=== PATIENT | female | born 1985 | race Caucasian/White ===

== ENCOUNTER 2020-06-19 12:11 | Inpatient (IN) ==
[2020-06-19] MEDS ORDERED: Isovue-370 500 ML BOTTLE IVP ONE (12:58)
[2020-06-19 13:21] LABS: Basophils % 0.3 %; Eosinophils # 0.1 K/mcL (0.0-0.6); Eosinophils % 0.6 %; Hematocrit 38.9 % (35.3-44.9); Hemoglobin 13.1 g/dL (11.5-15.4); Immature Granulocytes % 0.2 % (0-4); Lymphocytes # 1.9 K/mcL (0.6-4.6); Lymphocytes % 18.6 %; Mean Corpuscular HGB Conc 33.7 g/dL (31.6-35.5); Mean Corpuscular Hemoglobin 30.6 pg (28.0-33.3); Mean Corpuscular Volume 90.9 fL (83.0-100.0); Mean Platelet Volume 10.2 fL (9.4-12.4); Monocytes # 0.5 K/mcL (0.0-1.3); Monocytes % 5.2 %; Neutrophils # 7.7 K/mcL (1.6-8.9); Platelet Count 189 K/mcL (140-400); Red Blood Count 4.28 M/mcL (3.82-4.97); Red Cell Distribution Width 12.2 % (11.5-14.5); Segmented Neutrophils % 75.1 %; White Blood Count 10.2 K/mcL (4.3-11.1)
[2020-06-19 13:44] LABS: BUN/Creatinine Ratio 10 (6-26); Blood Urea Nitrogen 8 mg/dL (6-20); C-Reactive Protein 12 mg/L (Less than 10); Calcium 9.1 mg/dL (8.6-10.3); Carbon Dioxide 22 mEq/L (23-29); Chloride 107 mEq/L (98-107); Glucose 96 mg/dL (70-105); Osmolality,Calculated 282 (280-300); Potassium 3.7 mEq/L (3.5-5.1); Sodium 137 mEq/L (136-145); eGFR For African Americans > 60 (> 60); eGFR For Non-African Americans > 60 (> 60)
[2020-06-19] MEDS ORDERED: Piperacillin/Tazobactam 3.375 GM in 0.9 % Sodium Chloride Mini Bag 100 ML IVPB ONE (14:55)
[2020-06-19] MEDS ORDERED: Naloxone 0.4 MG/ML INJ IVP PRN (15:30)
[2020-06-19] MEDS ORDERED: *HR* HYDROcodone/Acet 5/325 mg TABLET PO PRN (15:30)
[2020-06-19] MEDS ORDERED: Nicotine 14 MG PATCH.TD24 TD PRN (16:04)
[2020-06-19] MEDS: Buprenorphine Hcl/Naloxone Hcl [Suboxone 8 Mg-2 Mg] SL SCH (17:49)
[2020-06-19] MEDS: ALPRAZolam 1 MG TABLET PO SCH (20:45)
[2020-06-19] MEDS: Piperacillin/Tazobactam 3.375 GM in 0.9 % Sodium Chloride Mini Bag 100 ML IVPB SCH (23:43)
[2020-06-20] MEDS: Ketorolac 30 MG/ML VIAL IVP PRN ×3 (02:43→20:51)
[2020-06-20 02:59] LABS: Basophils # 0.1 K/mcL (0.0-0.2); Basophils % 0.6 %; Eosinophils # 0.1 K/mcL (0.0-0.6); Eosinophils % 1.5 %; Hematocrit 37.4 % (35.3-44.9); Hemoglobin 12.3 g/dL (11.5-15.4); Immature Granulocytes % 0.2 % (0-4); Lymphocytes % 31.9 %; Mean Corpuscular HGB Conc 32.9 g/dL (31.6-35.5); Mean Corpuscular Hemoglobin 30.1 pg (28.0-33.3); Mean Corpuscular Volume 91.4 fL (83.0-100.0); Mean Platelet Volume 10.5 fL (9.4-12.4); Monocytes # 0.6 K/mcL (0.0-1.3); Monocytes % 6.8 %; Neutrophils # 5.5 K/mcL (1.6-8.9); Platelet Count 177 K/mcL (140-400); Red Blood Count 4.09 M/mcL (3.82-4.97); Red Cell Distribution Width 12.2 % (11.5-14.5); White Blood Count 9.3 K/mcL (4.3-11.1)
[2020-06-20 03:21] LABS: Alanine Aminotransferase 18 Units/L (7-52); Albumin 3.8 g/dL (3.5-5.7); Albumin/Globulin Ratio 1.5 (1.1-2.2); Alkaline Phosphatase 42 Units/L (34-104); Aspartate Amino Transferase 17 Units/L (13-39); BUN/Creatinine Ratio 12 (6-26); Bilirubin,Total 0.5 mg/dL (0.3-1.0); Blood Urea Nitrogen 9 mg/dL (6-20); Calcium 8.6 mg/dL (8.6-10.3); Carbon Dioxide 24 mEq/L (23-29); Chloride 107 mEq/L (98-107); Globulin 2.5 g/dL (2.4-3.5); Glucose 88 mg/dL (70-105); Osmolality,Calculated 282 (280-300); Potassium 3.7 mEq/L (3.5-5.1); Sodium 137 mEq/L (136-145); Total Protein 6.3 g/dL (6.4-8.9); eGFR For African Americans > 60 (> 60); eGFR For Non-African Americans > 60 (> 60)
[2020-06-20] MEDS: Piperacillin/Tazobactam 3.375 GM in 0.9 % Sodium Chloride Mini Bag 100 ML IVPB SCH ×3 (06:23→23:20)
[2020-06-20] MEDS: Vancomycin 1,250 MG/262.5 ML IV.SOLN IVPB SCH ×2 (06:24→16:23)
[2020-06-20] MEDS: ALPRAZolam 1 MG TABLET PO SCH ×2 (08:52→20:42)
[2020-06-20] MEDS: Buprenorphine Hcl/Naloxone Hcl [Suboxone 8 Mg-2 Mg] SL SCH ×2 (13:04→20:42)
[2020-06-21] MEDS: Vancomycin 1,500 MG/265 ML IV.SOLN IVPB SCH ×2 (04:53→17:20)
[2020-06-21] MEDS: Piperacillin/Tazobactam 3.375 GM in 0.9 % Sodium Chloride Mini Bag 100 ML IVPB SCH ×3 (08:19→23:33)
[2020-06-21] MEDS: ALPRAZolam 1 MG TABLET PO SCH ×2 (08:19→20:13)
[2020-06-21] MEDS: Buprenorphine Hcl/Naloxone Hcl [Suboxone 8 Mg-2 Mg] SL SCH (08:19)
[2020-06-21] MEDS ORDERED: *HR* Buprenorphine HCl 8 MG TAB.SUBL SL SCH (09:00)
[2020-06-21] MEDS: Ondansetron 4 MG/2 ML VIAL IVP PRN (11:24)
[2020-06-21] MEDS ORDERED: *HR* Promethazine 25 MG/ML VIAL IM ONE (13:12)
[2020-06-21] MEDS: Ketorolac 30 MG/ML VIAL IVP PRN ×2 (15:17→21:52)
[2020-06-21] MEDS: *HR* Buprenorphine HCl 2 MG SUBLINGUAL TABLET SL SCH (20:14)
[2020-06-22 02:23] LABS: BUN/Creatinine Ratio 9 (6-26); Blood Urea Nitrogen 11 mg/dL (6-20); Calcium 8.5 mg/dL (8.6-10.3); Carbon Dioxide 27 mEq/L (23-29); Chloride 105 mEq/L (98-107); Glucose 106 mg/dL (70-105); Osmolality,Calculated 286 (280-300); Potassium 3.6 mEq/L (3.5-5.1); Sodium 138 mEq/L (136-145); eGFR For African Americans > 60 (> 60); eGFR For Non-African Americans 53 (> 60)
[2020-06-22] MEDS: Ondansetron 4 MG/2 ML VIAL IVP PRN ×3 (02:38→18:55)
[2020-06-22] MEDS: Vancomycin 1,500 MG/265 ML IV.SOLN IVPB SCH (05:53)
[2020-06-22] MEDS ORDERED: *HR* Promethazine 25 MG/ML VIAL IM ONE (05:58)
[2020-06-22] MEDS: Piperacillin/Tazobactam 3.375 GM in 0.9 % Sodium Chloride Mini Bag 100 ML IVPB SCH ×3 (08:12→23:55)
[2020-06-22] MEDS: ALPRAZolam 1 MG TABLET PO SCH ×2 (10:44→20:29)
[2020-06-22] MEDS: *HR* Buprenorphine HCl 2 MG SUBLINGUAL TABLET SL SCH (10:44)
[2020-06-22] MEDS: Acetaminophen 325 MG TABLET PO PRN (11:02)
[2020-06-22] MEDS: 0.9 % Sodium Chloride 1,000 ML IVC SCH ×2 (14:20→23:55)
[2020-06-23] MEDS: Piperacillin/Tazobactam 3.375 GM in 0.9 % Sodium Chloride Mini Bag 100 ML IVPB SCH (06:45)
[2020-06-23] MEDS: ALPRAZolam 1 MG TABLET PO SCH ×2 (09:30→20:33)
[2020-06-23] MEDS: Ondansetron 4 MG/2 ML VIAL IVP PRN ×2 (09:43→20:33)
[2020-06-23 10:12] LABS: Basophils % 0.3 %; Eosinophils % 0.2 %; Hematocrit 40.7 % (35.3-44.9); Hemoglobin 13.3 g/dL (11.5-15.4); Immature Granulocytes % 0.3 % (0-4); Lymphocytes # 1.4 K/mcL (0.6-4.6); Lymphocytes % 11.8 %; Mean Corpuscular HGB Conc 32.7 g/dL (31.6-35.5); Mean Corpuscular Hemoglobin 30.2 pg (28.0-33.3); Mean Corpuscular Volume 92.5 fL (83.0-100.0); Mean Platelet Volume 10.2 fL (9.4-12.4); Monocytes # 0.9 K/mcL (0.0-1.3); Neutrophils # 9.1 K/mcL (1.6-8.9); Platelet Count 168 K/mcL (140-400); Red Cell Distribution Width 11.9 % (11.5-14.5); Segmented Neutrophils % 79.4 %; White Blood Count 11.5 K/mcL (4.3-11.1)
[2020-06-23 10:33] LABS: Albumin 3.1 g/dL (3.5-5.7); Albumin/Globulin Ratio 1.3 (1.1-2.2); Bilirubin,Total 0.6 mg/dL (0.3-1.0); Calcium 8.6 mg/dL (8.6-10.3); Globulin 2.4 g/dL (2.4-3.5); Potassium 4.4 mEq/L (3.5-5.1); Total Protein 5.5 g/dL (6.4-8.9)
[2020-06-23 11:50] LABS: Bacteria,Urine Few per hpf (None-Few); Bilirubin,Urine Negative (Negative); Blood,Urine Small (Negative); Clarity,Urine Ex.Turbid (Clear); Color,Urine Yellow (Yellow); Glucose,Urine (UA) Normal (Normal); Ketones,Urine Negative (Negative); Leukocyte Esterase,Urine Small (Negative); Nitrite,Urine Negative (Negative); Protein,Urine 100 mg/dL (Neg-Trace); Specific Gravity,Urine 1.015 (1.010-1.025); Squamous Epithelial Cell,Urine Moderate per hpf (None-Few); Urobilinogen,Urine Normal (Normal); WBC,Urine 15-30 per hpf (0-3)
[2020-06-23 11:54] LABS: Hepatitis B Surface Antigen Nonreactive (Nonreactive)
[2020-06-23 12:23] LABS: Hepatitis B Core IgM Nonreactive (Nonreactive)
[2020-06-23 12:24] LABS: Hepatitis A Antibody IgM Nonreactive (Nonreactive)
[2020-06-23] MEDS: 0.9 % Sodium Chloride 1,000 ML IVC SCH ×2 (12:51→23:44)
[2020-06-23 14:32] LABS: Hepatitis C Virus Antibody Reactive (Nonreactive)
[2020-06-23] MEDS: cefTRIAXone 1,000 MG in 0.9 % Sodium Chloride Mini Bag 100 ML IVPB SCH (15:01)
[2020-06-23] MEDS: Doxycycline 100 MG in 0.9 % Sodium Chloride Mini Bag 100 ML IVPB SCH (17:55)
[2020-06-23 18:18] LABS: Protein/Creatinine Ratio,Urine 1.77 mg/mg (0.00-0.20); Sodium, Urine 59.7 mEq/L
[2020-06-23] MEDS ORDERED: *HR* LORazepam 2 MG/ML VIAL IVP ONE (21:04)
[2020-06-23] MEDS ORDERED: Ketorolac 30 MG/ML VIAL IVP ONE (21:05)
[2020-06-23] MEDS ORDERED: *HR* Promethazine 25 MG/ML VIAL IM ONE (21:05)
[2020-06-24] MEDS: Doxycycline 100 MG in 0.9 % Sodium Chloride Mini Bag 100 ML IVPB SCH ×2 (04:55→17:12)
[2020-06-24 09:01] LABS: Basophils % 0.4 %; Eosinophils # 0.1 K/mcL (0.0-0.6); Eosinophils % 0.5 %; Hematocrit 40.2 % (35.3-44.9); Hemoglobin 12.9 g/dL (11.5-15.4); Immature Granulocytes % 0.4 % (0-4); Lymphocytes # 1.4 K/mcL (0.6-4.6); Lymphocytes % 13.6 %; Mean Corpuscular HGB Conc 32.1 g/dL (31.6-35.5); Mean Corpuscular Hemoglobin 29.9 pg (28.0-33.3); Mean Corpuscular Volume 93.1 fL (83.0-100.0); Mean Platelet Volume 10.6 fL (9.4-12.4); Monocytes # 0.9 K/mcL (0.0-1.3); Monocytes % 8.5 %; Platelet Count 161 K/mcL (140-400); Red Blood Count 4.32 M/mcL (3.82-4.97); Red Cell Distribution Width 11.9 % (11.5-14.5); Segmented Neutrophils % 76.6 %; White Blood Count 10.4 K/mcL (4.3-11.1)
[2020-06-24] MEDS: cefTRIAXone 1,000 MG in 0.9 % Sodium Chloride Mini Bag 100 ML IVPB SCH (09:03)
[2020-06-24] MEDS: ALPRAZolam 1 MG TABLET PO SCH ×2 (09:03→20:50)
[2020-06-24 09:20] LABS: Uric Acid 5.1 mg/dL (2.3-7.6)
[2020-06-24 09:24] LABS: Albumin 3.1 g/dL (3.5-5.7); Albumin/Globulin Ratio 1.3 (1.1-2.2); Bilirubin,Total 0.4 mg/dL (0.3-1.0); Calcium 8.7 mg/dL (8.6-10.3); Globulin 2.4 g/dL (2.4-3.5); Potassium 4.2 mEq/L (3.5-5.1); Total Protein 5.5 g/dL (6.4-8.9)
[2020-06-24] MEDS ORDERED: 0.9 % Sodium Chloride 1,000 ML IVC SCH ×2 (11:00→12:30)
[2020-06-24] MEDS: 0.9 % Sodium Chloride 1,000 ML IVC SCH ×2 (12:38→20:49)
[2020-06-24] MEDS: *HR* Promethazine 25 MG/ML VIAL IM PRN (20:50)
[2020-06-25] MEDS: 0.9 % Sodium Chloride 1,000 ML IVC SCH ×5 (04:22→21:30)
[2020-06-25] MEDS: Doxycycline 100 MG in 0.9 % Sodium Chloride Mini Bag 100 ML IVPB SCH ×2 (05:32→17:18)
[2020-06-25 06:46] LABS: Calcium 8.4 mg/dL (8.6-10.3); Phosphorous 4.3 mg/dL (2.7-4.5); Potassium 3.8 mEq/L (3.5-5.1)
[2020-06-25] MEDS: ALPRAZolam 1 MG TABLET PO SCH ×2 (09:29→21:37)
[2020-06-25] MEDS: Ondansetron 4 MG/2 ML VIAL IVP PRN (21:27)
[2020-06-26 03:20] LABS: Calcium 8.1 mg/dL (8.6-10.3)
[2020-06-26 03:21] LABS: Phosphorous 4.9 mg/dL (2.7-4.5)
[2020-06-26] MEDS: 0.9 % Sodium Chloride 1,000 ML IVC SCH ×3 (04:58→16:52)
[2020-06-26] MEDS: Doxycycline 100 MG in 0.9 % Sodium Chloride Mini Bag 100 ML IVPB SCH ×2 (04:59→21:18)
[2020-06-26] MEDS: ALPRAZolam 1 MG TABLET PO SCH ×2 (11:19→21:17)
[2020-06-27 01:21] LABS: Basophils % 0.3 %; Eosinophils # 0.1 K/mcL (0.0-0.6); Eosinophils % 1.5 %; Hematocrit 32.5 % (35.3-44.9); Immature Granulocytes % 0.4 % (0-4); Lymphocytes # 1.9 K/mcL (0.6-4.6); Lymphocytes % 19.6 %; Mean Corpuscular HGB Conc 33.5 g/dL (31.6-35.5); Mean Corpuscular Hemoglobin 29.9 pg (28.0-33.3); Mean Corpuscular Volume 89.3 fL (83.0-100.0); Mean Platelet Volume 10.8 fL (9.4-12.4); Monocytes # 0.9 K/mcL (0.0-1.3); Monocytes % 9.6 %; Neutrophils # 6.6 K/mcL (1.6-8.9); Platelet Count 153 K/mcL (140-400); Red Blood Count 3.64 M/mcL (3.82-4.97); Red Cell Distribution Width 12.1 % (11.5-14.5); Segmented Neutrophils % 68.6 %; White Blood Count 9.6 K/mcL (4.3-11.1)
[2020-06-27 01:23] LABS: Hemoglobin 10.9 g/dL (11.5-15.4)
[2020-06-27 01:33] LABS: Calcium 7.9 mg/dL (8.6-10.3); Potassium 3.7 mEq/L (3.5-5.1)
[2020-06-27] MEDS: Doxycycline 100 MG in 0.9 % Sodium Chloride Mini Bag 100 ML IVPB SCH ×2 (05:13→16:21)
[2020-06-27] MEDS: Acetaminophen 325 MG TABLET PO PRN (05:40)
[2020-06-27] MEDS: 0.9 % Sodium Chloride 1,000 ML IVC SCH ×3 (07:00→16:25)
[2020-06-27] MEDS: ALPRAZolam 1 MG TABLET PO SCH ×2 (07:13→21:58)
[2020-06-27] MEDS: Ondansetron 4 MG/2 ML VIAL IVP PRN ×2 (07:17→16:21)
[2020-06-27] MEDS ORDERED: Mag Hydrox/Al Hydrox/Simeth 30 ML UDC PO ONE (09:09)
[2020-06-27] MEDS ORDERED: Ipratropium/Albuterol Neb 3 ML IH PRN (10:29)
[2020-06-27 13:43] LABS: Adenovirus F 40/41 PCR Not detected (Not detect); Astrovirus PCR Not detected (Not detect); C.difficile Toxin A/B Gene PCR Not detected (Not detect); Campylobacter by PCR Not detected (Not detect); Cryptosporidium by PCR Not detected (Not detect); Cyclospora cayetanensis PCR Not detected (Not detect); E. coli O157 by PCR Not detected (Not detect); Entamoeba histolytica PCR Not detected (Not detect); Enteroaggregative E.coli(EAEC) Not detected (Not detect); Enteropathogenic E.coli(EPEC) Not detected (Not detect); Enterotoxigenic E.coli (ETEC) Not detected (Not detect); Giardia lamblia PCR Not detected (Not detect); Norovirus GI/GII PCR Not detected (Not detect); Plesiomonas shigelloides PCR Not detected (Not detect); Rotavirus A PCR Not detected (Not detect); Salmonella PCR Not detected (Not detect); Sapovirus PCR Not detected (Not detect); Shig/EnteroinvasiveE coli EIEC Not detected (Not detect); Shigalike tox-prod E coli STEC Not detected (Not detect); Vibrio PCR Not detected (Not detect); Vibrio cholerae PCR Not detected (Not detect); Yersinia enterocolitica PCR Not detected (Not detect)
[2020-06-27] MEDS: *HR* Promethazine 25 MG/ML VIAL IM PRN (21:13)
[2020-06-28] MEDS ORDERED: *HR* LORazepam 2 MG/ML VIAL IVP ONE (02:33)
[2020-06-28] MEDS: Metoclopramide 10 MG/2 ML VIAL IVP PRN ×3 (03:29→18:53)
[2020-06-28] MEDS: Acetaminophen 325 MG TABLET PO PRN (03:29)
[2020-06-28 03:37] LABS: Hematocrit 32.7 % (35.3-44.9); Hemoglobin 10.9 g/dL (11.5-15.4); Mean Corpuscular HGB Conc 33.3 g/dL (31.6-35.5); Mean Corpuscular Volume 90.1 fL (83.0-100.0); Mean Platelet Volume 10.9 fL (9.4-12.4); Platelet Count 156 K/mcL (140-400); Red Blood Count 3.63 M/mcL (3.82-4.97); Red Cell Distribution Width 12.2 % (11.5-14.5); White Blood Count 9.2 K/mcL (4.3-11.1)
[2020-06-28 03:56] LABS: Calcium 8.2 mg/dL (8.6-10.3); Phosphorous 4.7 mg/dL (2.7-4.5); Potassium 3.8 mEq/L (3.5-5.1)
[2020-06-28] MEDS: Doxycycline 100 MG in 0.9 % Sodium Chloride Mini Bag 100 ML IVPB SCH (05:28)
[2020-06-28] MEDS: ALPRAZolam 1 MG TABLET PO SCH ×2 (07:22→20:53)
[2020-06-28] MEDS: 0.9 % Sodium Chloride 1,000 ML IVC SCH (07:28)
[2020-06-28] MEDS: Doxycycline 100 MG CAPSULE PO SCH (16:25)
[2020-06-29] MEDS: Acetaminophen 325 MG TABLET PO PRN (04:55)
[2020-06-29] MEDS: Doxycycline 100 MG CAPSULE PO SCH (04:56)
[2020-06-29 05:48] LABS: Calcium 8.2 mg/dL (8.6-10.3); Potassium 3.9 mEq/L (3.5-5.1)
[2020-06-29] MEDS: Metoclopramide 10 MG/2 ML VIAL IVP PRN (05:54)
[2020-06-29 07:04] VITALS: BP 163/85
[2020-06-29] MEDS: ALPRAZolam 1 MG TABLET PO SCH (09:56)
[2020-06-29] MEDS: NIFEdipine XL (24 HR) 30 MG TAB.ER.24 PO SCH ×2 (09:56)
[2020-06-29] MEDS ORDERED: Mag Hydrox/Al Hydrox/Simeth 30 ML UDC PO SCH (12:00)
== END 2020-06-29 11:34 | disposition home or self-care (01) | DRG 383 ==
LOC: 3ANU 12:11 → EMEROOARM 12:11 → SUATTDRO 15:22 → 3ANU 16:08 → SUATTDRO 06-24 10:49 → 2ANU 06-25 17:00
PROVIDERS: ADMIT General Practice; ATTEND Internal Medicine